=== PATIENT | female | born 1990 | race Two or more races ===

== ENCOUNTER 2024-06-27 23:23 | Emergency (ER) | payer OTHER ==
[~2024-06-27] VITALS: Ht 162.6 cm; Wt 68.9 kg
[2024-06-28] MEDS ORDERED: FAMOTIDINE/PF 20 MG/2 ML VIAL IV PUSH STA ×2 (00:12→04:36)
[2024-06-28] MEDS ORDERED: PROMETHAZINE HCL 50 MG/ML AMPUL IM STA (00:12)
[2024-06-28] MEDS ORDERED: 0.9 % SODIUM CHLORIDE 1,000 ML IV ONE (00:15)
[2024-06-28] MEDS ORDERED: PROMETHAZINE HCL 50 MG/ML AMPUL IM ONE (00:18)
[2024-06-28] MEDS ORDERED: FAMOTIDINE/PF 20 MG/2 ML VIAL ONE ×2 (00:19→04:59)
[2024-06-28 01:04] LABS: HEMATOCRIT 47.1 % (36.0-45.00); HEMOGLOBIN 15.7 g/dL (12.0-15.00); MEAN CELL VOLUME 87.7 fL (80.00-100.00); MEAN CORPUSCULAR HEMOGLOBIN 29.1 pg (27.00-32.0); MEAN CORPUSCULAR HGB CONC 33.2 g/dl (32.0-36.0); PLATELET COUNT 266 K/uL (150-450); RED BLOOD COUNT 5.37 M/uL (4.00-6.00); RED CELL DISTRIBUTION WIDTH 13.7 % (11.5-14.5)
[2024-06-28] MEDS ORDERED: MORPHINE SULFATE 4 MG/ML VIAL IV SCH (01:15)
[2024-06-28 01:18] LABS: ALBUMIN 4.1 gm/dL (3.4-5.0); ALKALINE PHOSPHATASE 62 U/L (50-136); ALT/SGPT 29 U/L (12-78); AMYLASE 48 U/L (25-115); ANION GAP 13 (10.0-20.0); AST/SGOT 20 U/L (15-37); BILIRUBIN TOTAL 0.75 mg/dL (0.3-1.2); BLOOD UREA NITROGEN 10 mg/dL (7-18); BUN CREA RATIO 10 (7.0-25.0); CALCIUM 9.1 mg/dL (8.5-10.1); CARBON DIOXIDE 27 mEq/L (21-32); CHLORIDE 102 mmol/L (98-107); CREATININE SERUM 1.05 mg/dL (0.55-1.02); GFR 59.64; GLOBULINA 3.8 G/DL (2.4-3.5); GLUCOSE FASTING 145 mg/dL (65-100); LIPASE 29 U/L (13-75); OSMOLALITY SERUM 277 MOSM/KG (275-295); POTASSIUM 4.12 mEq/L (3.5-5.1); SODIUM 138 mmol/L (136-145); TOTAL PROTEIN 7.9 gm/dL (6.4-8.2)
[2024-06-28 02:12] LABS: HCG QUANTITATIVE < 1 mUI/mL (1-3)
[2024-06-28 04:20] LABS: URINE APPEARANCE Clear; URINE BILIRRUBIN Negative (NEGATIVE); URINE BLOOD Trace; URINE COLOR Yellow; URINE LEUKOCYTE Negative; URINE NITRATE Negative; URINE PROTEIN 30 (NEGATIVE); URINE UROBILINOGEN 0.2 E.U./dl
[2024-06-28 04:21] LABS: URINE BACTERIA 2098.9 uL (0.0-1933); URINE EPITHELIAL CELLS 27.6 uL (0.0-38.8); URINE RBC 21.9 uL (0.0-20.8); URINE WBC 120.9 uL (0.0-23.2)
[2024-06-28 04:22] LABS: URINE CAST 0.14 uL (0.0-1.40); URINE GLUCOSE 250 MG/DL (NEGATIVE); URINE KETONE 80 (NEGATIVE)
[2024-06-28] MEDS ORDERED: MORPHINE SULFATE 4 MG/ML VIAL IV STA (04:36)
[2024-06-28] MEDS ORDERED: ZOFRAN8 MG PO (07:36)
[2024-06-28] MEDS ORDERED: PROTONIX40 MG PO (07:36)
== END 2024-06-28 07:42 ==
LOC: ER 23:24
PROVIDERS: General Practice
DX: R10.13 Epigastric pain (principal)